=== PATIENT | male | born 1955 | race Caucasian/White ===

== ENCOUNTER → 2016-09-17 06:34 | Day surgery (SDC) | payer OTHER ==
--- NOTE | 2016-09-09 10:23 | HP ---
PREOPERATIVE HISTORY AND PHYSICAL: DATE OF SURGERY: 09/17/16 DATE OF OFFICE VISIT: 09/09/16 ATTENDING SURGEON: Dr. Donavan Vitale. PROCEDURE: Left shoulder arthroscopic rotator cuff repair verus open rotator cuff repair, subpectoral biceps tenodesis. CHIEF COMPLAINT: Left shoulder pain. HISTORY OF PRESENT ILLNESS: Mr. Miller is a 61-year-old male who presents to the clinic for ongoing left shoulder pain due to rotator cuff tear and biceps tendonitis. The patient has failed conservative measures and has therefore agreed to undergo a left shoulder arthroscopic rotator cuff repair versus open rotator cuff repair and subpectoral biceps tenodesis by Dr. Vitale on 09/17/16. PAST MEDICAL HISTORY: 1. High cholesterol. 2. High blood pressure. 3. Depression. 4. BPH. 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 The patient denies prior issues with anesthesia. MEDICATIONS: 1. Amlodipine besylate 10 mg one by mouth daily. 2. Citalopram hydrobromide 20 mg one by mouth daily. 3. Atorvastatin calcium 10 mg one by mouth daily. 4. Lisinopril 40 mg one by mouth daily. 5. Tramadol 50 mg one to two tabs by mouth every 8 hours as needed for pain. ALLERGIES: No known drug allergies. FAMILY HISTORY: Mom with diabetes. Dad with peptic ulcer disease. Sister with colon cancer. Brother with hemophilia. SOCIAL HISTORY: He lives with his spouse. 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 He denies tobacco use. He reports alcohol use, about two beverages a day. He exercises daily. REVIEW OF SYSTEMS: A 14-point review of systems was reviewed with the patient and positive for a head cold, hypertension, high cholesterol, BPH, weak stream, and frequent kidney stones. Otherwise, 14-point review of systems was negative. The patient denies history of DVT or PE. PHYSICAL EXAMINATION GENERAL: A well-developed, well-nourished, 61-year-old male in no acute distress. VITAL SIGNS: Height 70, weight 250, pulse 75, blood pressure 153/75, and respiratory rate 17. HEENT: Normocephalic and atraumatic. PERRLA. Throat clear. NECK: Supple. LUNGS: Lungs are clear to auscultation bilaterally. No wheezing, rhonchi, or rales. HEART: Cardiac; regular rate and rhythm. S1 and S2. No murmurs, gallops, or rubs. No edema. ABDOMEN: Positive bowel sounds, soft, and nontender. NEUROLOGIC: Alert and oriented x3; Cranial nerves are grossly intact. Sensation intact to light touch. MUSCULOSKELETAL: Left shoulder forward flexion to 160, abduction to 160, external rotation 75, internal rotation to T10. +4/5 belly press and bear hug, +4/5 strength to supraspinatus testing, +5/5 strength to the infraspinatus testing. Positive Neer, Campbell-Blayne, Providence and Speed's. Tenderness to palpation over the bicipital groove. +2 radial pulses. Sensation intact to light touch distally. DIAGNOSTIC STUDIES: MRI reveals tendinopathy and a small partial thickness tear of the supraspinatus tendon and undersurface tearing of the subscapularis tendon. IMPRESSION: Rotator cuff tear and biceps tendonitis of the left shoulder. PLAN/RECOMMENDATIONS: The patient is scheduled to undergo a left shoulder arthroscopic rotator cuff repair versus open rotator cuff repair and subpectoral biceps tenodesis with Dr. Vitale on 09/17/16. He will return to the office 10 to 14 days postop for followup and suture removal. A prescription for Percocet was E-prescribed to the patient's pharmacy for postoperative pain management. He was instructed to get Colace from the pharmacy for opioid-induced constipation. The patient will see his primary care physician, Dr. Thayer, prior to surgery, and will have Dr. Thayer send a note to the office. EDEL ALVARES [id number]/[facility] #: [id number] MTDRxoy
[~2016-09-17 06:34] MED LIST: Buffered Lidocaine 1% SYR 3ML* 3 ML/SYR SYRINGE INTRADERM ONE; Bupivacaine 0.25% SDV* 30 ML ONE; Bupivacaine 0.5% W/EPI SDV* 30 ML VIAL ONE; Dexamethasone IV* 4 MG/ML 1 ML (4 MG) IV SLOW PU ONE; Dexamethasone IV* 4 MG/ML 1 ML (4 MG) ONE; DiMENhydriNATE IV* 50 MG/ML VIAL IV PUSH PRN; Famotidine IV* 10 MG/ML 2 ML (20 mg) IV ONE; Famotidine IV* 10 MG/ML 2 ML (20 mg) ONE; Levalbuterol HFA INHALER* 1 PUFF MDI ONE; Lidocaine 2% PF * 5 ML VIAL ONE; Midazolam* 1 MG/ML 2 ML VIAL (2 MG) ONE; Ondansetron INJ* 2 MG/ML VIAL IV PRN; Ondansetron INJ* 2 MG/ML VIAL ONE; PROCHLORPERAZINE INJ 5 MG/ML 2 ML VIAL IV PRN; Propofol* 10 MG/ML 20 ML BTL IV PUSH ONE; Scopolamine 1.5 mg* PATCH TRANSDERM PRN; Scopolamine PATCH Remove* 1 NOTE MISC PATCH OFF ONE; ceFAZolin 2 GM PREMIX (*) 2 GM/50 ML BAG IVPB ONE; fentaNYL* 50 MCG/ML 2 ML VIAL (100 MCG VIAL) IV PRN; fentaNYL* 50 MCG/ML 2 ML VIAL (100 MCG VIAL) ONE
[2016-09-17 12:23] VITALS: BP 140/90
--- NOTE | 2016-09-18 03:07 | OP ---
DATE OF OPERATION: 09/17/16 [facility] DATE OF : 51 SURGEON: Donavan Vitale MD MARKETING PROJECT SPECIALIST: EDEL Blank. An museum assistant was needed for the entirety of the case to help with positioning, retraction, placement of anchors, and closure. ANESTHESIOLOGIST: David Dodson MD ANESTHESIA: General with interscalene block. PRE-OP DIAGNOSIS: Left shoulder rotator cuff tear, bicipital tendinitis. POST-OP DIAGNOSIS: Left shoulder rotator cuff tear, bicipital tendinitis. OPERATIVE PROCEDURE: Left shoulder arthroscopy with: 1. Extensive glenohumeral debridement including chondroplasty of the glenoid. 2. Arthroscopic rotator cuff repair of the subscapularis. 3. Arthroscopic double row rotator cuff repair of the supraspinatus tendon. 4. Subacromial decompression. 5. Subpectoral biceps tenodesis. IMPLANTS USED: Two MULTIFIX, one HEALICOIL, and one Q-Fix anchors. COMPLICATIONS: None. ESTIMATED BLOOD LOSS: Minimal. INDICATIONS: Yash Miller is a 61-year-old male who had shoulder pain for a significant amount of time. He failed conservative management. He has had injections as well as physical therapy. He was diagnosed with a high-grade partial- thickness tear of the supraspinatus as well as subscapularis as well as bicipital tendonitis. Risks and benefits of the surgery were discussed at length included but are not limited to bleeding, infection, damage to nerves, vessels, surrounding structures, wound nonhealing, persistent pain, need for further surgery, failure to repair, need further surgery, scarring, persistent pain, stiffness, loss of motion, risks of anesthesia, and risks of DVT. He has elected to proceed with the surgery. DESCRIPTION OF PROCEDURE: The patient was greeted in the preoperative area by the attending surgeon. Correct extremity was marked and consent was confirmed. The patient then underwent interscalene nerve by the anesthesia team in the preanesthesia area after which, he was brought to the operating room, where he was placed in supine position on the operating table. He then underwent general anesthesia with LMA intubation. After which, he was placed in the right lateral decubitus position. An axillary roll was placed. All bony prominences were padded and he was supported with a pegboard and the left arm was suspended from the traction frame with 10 pounds of traction. The shoulder was prepped and draped in the usual sterile fashion, beginning with chlorhexidine soap scrub and alcohol wipe and a final prep with ChloraPrep. After appropriate surgical pause indicating site, side, procedure, and administration of antibiotics; the posterolateral portal was made sharply with the 11-blade. The scope was introduced into the joint. The joint was examined. There were grade 0 to 1 changes of the vast majority of the humerus except for one area in the center which was grade 2 changes without stable flaps. The inferior aspect of the glenoid had grade 1 to 2 changes with unstable fraying. The anterior, posterior, inferior, and superior labrum had unstable fraying. The anterior portal was then made in an outside-in fashion. The superior labrum was damaged and torn and the biceps, which was stable, was starting to tear into the subscapularis. There was high-grade partial-thickness tearing of the undersurface of the subscap as well as the supraspinatus tendon. The biceps had abundant hyperemia and this was then tenotomized. The shaver was used to debride the unstable flaps of the cartilage of the humeral head and the glenoid. The anteroposterior and superior labrum was also debrided back. The subscap was identified and had high-grade partial-thickness tearing at least of proximal 25% of the footprint. This was easily restored by placing retraction on the cuff and trying to restore this with the grasper and the decision was made to repair this arthroscopically. Once the debridement was completed, attention was directed to arthroscopic subscap repair. The large 8-mm cannula was placed anteriorly. The lesser tuberosity was prepared with the shaver. The electrocautery device as well as the bur to decorticate the edges. The Dodson and Nephew tape was then passed in a horizontal mattress configuration through the subscapularis and then passed to the MULTIFIX anchor, which was then seated with excellent purchase. This helped to restore the subscapularis to the appropriate attention as well as complete the repair. Final images were obtained and the shoulder was taken to gentle internal and external rotation and was stable. The under-surface of the supraspinatus tendon had unstable fraying with high-grade partial-thickness tearing. All fluids and debris was removed from the joint. The scope was then repositioned in the subacromial space and this was examined. There was abundant hyperemic bursa that was present. A lateral portal was then made in an outside-in fashion. The shaver was then brought into the lateral portal and then bursectomy was done just to expose the undersurface of the acromion, which was then skeletonized using the electrocautery device. This demonstrated irregular spurs. Therefore, the bur was brought in and then after the CA ligament was peeled back, a small acromioplasty was done. At this point , the rotator cuff was examined. There was high-grade bursal sided tearing and then the cuff was probed and found to be quite thin. The incision was made to take down and repair the supraspinatus. The 11 blade was used to complete the tear of the anterior aspect of the supraspinatus tendon. The shaver was used to debride back the fibers of rotator cuff as well as the footprint. The footprint was further prepared with the electrocautery device and the rasp. Once good bony bleeding edge was identified, one 4.75 HEALICOIL anchor was placed in the medial row. The sutures were passed in a horizontal mattress configuration and tied down with arthroscopic knot tie. This was then further passed through MULTIFIX anchor into the lateral row anchor, which is called MULTIFIX. This allowed for reapproximation double row repair to compress the supraspinatus tendon. Final images were obtained and all fluid and debris was removed from the joint. The bed was slightly airplaned to the left side. The anterior aspect of the humerus was prepped again with ChloraPrep and a 15 blade was then used to make an incision in line with the biceps encompassing the inferior two-thirds of the pectoral tendon. The dissection was done with Metzenbaum scissors until the clavipectoral fascia was identified. The remainder of the dissection was done bluntly. The Rylan was used to elevate the deltoid superiorly and the bicipital groove was then palpated and a small wellington in the groove was then made using the Bovie and the biceps was removed and found to be very hyperemic and inflamed. The bicipital groove was then prepped in the usual fashion with electrocautery device, the small ball rasp, and the osteotome. The Q-FIX anchor drill guide was then placed and drilled unicortically. The Q-FIX was deployed with excellent purchase. The sutures were then passed to the tendon approximately 1 cm proximal to the musculotendinous junction in a Joe-Tashi type configuration. The excess biceps stump was then debrided and the biceps was then shuttled back into the wound and secured with the knots. This helped restore tension to the biceps. The wounds were copiously irrigated. The anterior wound was closed in layer with 2-0 Vicryl and 3-0 Monocryl. The 3-0 nylon was used to close the portal sites. A 20 cc of 0.25% Marcaine plain were injected in the anterior wound. Sterile dressings were applied, a Cryo/Cuff, and UltraSling. He was awoken from anesthesia and transferred to the PACU in stable condition. POSTOPERATIVE PLAN: He will be nonweightbearing. For 6 weeks, he will be in the sling for that time. He will be allowed to come out, 4 times a day, to work on elbow, hand, and wrist range of motion as well as pendulum exercises. He will be discharged on pain medications as well as antibiotics. DVT prophylaxis was considered due to no previous personal or family history. I will see the patient back in 10 to 14 days. CC: PCP, Michael Thayer MD* [id number]/[facility] #: [id number] KENYATTA
== END | disposition home or self-care (01) ==
LOC: OR 06:34
PROVIDERS: ATTEND Orthopaedic Surgery
DX: M75.102 Unspecified rotator cuff tear or rupture of left shoulder, not specified as traumatic (principal); M75.22 Bicipital tendinitis, left shoulder; I10 Essential (primary) hypertension
CPT/HCPCS: 36415; 86803; A9270-GY; C1713; C1776; J0690; J1100; J2250; J2405; J2704; J3010

== ENCOUNTER → 2016-11-19 11:25 | Day surgery (SDC) | payer OTHER ==
[~2016-11-19 11:25] MED LIST changes: -Buffered Lidocaine 1% SYR 3ML* 3 ML/SYR SYRINGE INTRADERM ONE; +Buffered Lidocaine 1% SYRIN* 3 ML/SYR SYRINGE INTRADERM ONE; -Bupivacaine 0.5% W/EPI SDV* 30 ML VIAL ONE; -Dexamethasone IV* 4 MG/ML 1 ML (4 MG) IV SLOW PU ONE; -Dexamethasone IV* 4 MG/ML 1 ML (4 MG) ONE; -Famotidine IV* 10 MG/ML 2 ML (20 mg) IV ONE; -Famotidine IV* 10 MG/ML 2 ML (20 mg) ONE; -Levalbuterol HFA INHALER* 1 PUFF MDI ONE; -Lidocaine 2% PF * 5 ML VIAL ONE; +Lidocaine 2% PF* 5 ML VIAL ONE; -Ondansetron INJ* 2 MG/ML VIAL IV PRN; -Ondansetron INJ* 2 MG/ML VIAL ONE; -PROCHLORPERAZINE INJ 5 MG/ML 2 ML VIAL IV PRN; +ROPIVACAINE 5 MG/ML 30 ML BTL (0.5%) ONE; -Scopolamine 1.5 mg* PATCH TRANSDERM PRN; -Scopolamine PATCH Remove* 1 NOTE MISC PATCH OFF ONE; +Sodium Citrate/Citric Acid* 15 ML UDC ONE; -ceFAZolin 2 GM PREMIX (*) 2 GM/50 ML BAG IVPB ONE; +ceFAZolin 2 GM PREMIX(*) 2 GM/50 ML BAG IVPB ONE; +oxyCODONE/Acetamin 5/325 MG* TAB ONE
[2016-11-19] MEDS: Sodium Citrate/Citric Acid* 15 ML UDC PO ONE ×2 (11:56→12:17)
[2016-11-19 15:47] VITALS: BP 124/104
--- NOTE | 2016-11-20 13:18 | OP ---
DATE OF OPERATION: 11/19/16 [facility] DATE OF : 51 ATTENDING SURGEON: Donavan Vitale MD PAINT FACTORY WORKER: Margie Neville PA-C. An assistant clinical nurse manager was needed for the entirety of the case to help with positioning, retraction, and was utilizing throughout all portions of the case. ANESTHESIOLOGIST: Dr. Comer. ANESTHESIA: General with interscalene block. PRE-OP DIAGNOSIS: Left shoulder retear of the rotator cuff. POST-OP DIAGNOSIS: Left shoulder retear of the rotator cuff. OPERATIVE PROCEDURE: 1. Left shoulder arthroscopic debridement with removal of foreign bodies x3. 2. Revision decompression. 3. Revision rotator cuff repair. A 22 modifier due to this was a revision case and it was complex, and there was abundant healing scar tissue that needed to be worked through. IMPLANTS USED: One HEALICOIL and one MULTIFIX. INDICATIONS: Yash Miller is a 61-year-old male who underwent left shoulder rotator cuff repair which was essentially a massive rotator cuff repair involving supra- and infraspinatus tendons as well as the subscapularis and subpectoral biceps tenodesis on September 17. He was doing well on his postoperative period but fell sustaining reinjury to the cuff. He had another tear that was demonstrated by MRI and therefore the risks and benefits of surgery versus nonoperative procedure were discussed at length and the patient elected to proceed with surgery. Risks included but not limited to bleeding; infection; damage to nerves, vessels, surrounding structures; the wound not healing; persistent pain; need for further surgery; risk of anesthesia failure; risk of DVT; failure; stiffness; scarring. He has elected to proceed. COMPLICATIONS: None. DESCRIPTION OF PROCEDURE: The patient was greeted in the preoperative area by the attending surgeon. Correct extremity was marked, consent was confirmed. The patient was then brought back to the operative suite where he was placed in supine position on the operating table. He then underwent an interscalene nerve block by the anesthesiologist, after which the patient underwent general anesthesia with endotracheal intubation, which he tolerated without difficulty. The patient was then placed in the right lateral decubitus position, all bony prominences were padded, supported with a peg board. A small axillary roll was placed. The left arm was draped from the traction frame with 10 pounds of traction unsterile. The left shoulder was prepped and draped in the usual sterile fashion beginning with chlorhexidine soap and alcohol scrub and final prep with ChloraPrep. After appropriate surgical pause indicating side, site, procedure, and administration of antibiotics, the standard postero-lateral portal was made sharply with an 11 blade. The scope was introduced into the joint and the joint was examined. There was abundant synovitis in the glenohumeral joint space. There were no significant changes to the humeral or glenoid wear compared to the previous surgery. The subscap had evidence of the suture being torn; however the tendon itself was mostly intact. The shaver and electrocautery devices were used to gently debride around the scar tissue and the subscap was identified and found to be mostly intact, therefore it was left alone. The undersurface of the supra-spinatus was identified and it was found to be fully torn anteriorly. After the debridement superiorly and about the subscap was complete, attention was directed to subacromial space. The scope was repositioned at the subacromial space. There was abundant bursa evident. There was evidence of healing and partially healed rotator cuff. The bursa and dense tissue were very thick and scarred requiring more time than usual for debridement. The cuff was then probed and anterior portion appeared to have tearing, had bubbled over, there were sutures that were pulled through the tendon tissue. At this point, the space was very tight. After the lateral portal was made in an outside- in fashion, the shaver was used to debride the bursa. The undersurface of the acromion had scar tissue that was debrided back using the electrocautery device as well as the shaver. A gentle decortication was done again to allow for more room to pass the sutures. The torn portion of the tendon anteriorly, the sutures were carefully removed. This did take some time because the knots were still intact. Once these were removed in its entirety, the footprint was prepared using electrocautery device, the rasp as well as the shaver. The rotator cuff was again prepared with a shaver as well. This provisionally was reduced to the footprint and found to be appropriately reduced. After this, one HEALICOIL anchor was placed in the medial row. Care was taken to try to not to place this in the previous rotator cuff anchor sites. This was placed with a good purchase. The bone quality however was not good. The sutures were then passed in horizontal mattress configuration throughout the tendon and then tied down with arthroscopic knot tying. Decision was made to try to do a lateral row and that was done so with MULTIFIX with care to try to find a portion of the bone that was not already previously penetrated by previous lateral row. Once this was done, this allowed for appropriate buddhism of the footprint. The final images were obtained. All loose debris was removed from the joint and loose debris was removed from the subacromial space. The portals were closed with 3-0 nylon. Sterile dressings were applied. Cryo/ Cuff as well as his previous UltraSling were applied. He was awoken from anesthesia and transferred to the PACU in stable condition. POSTOPERATIVE PLAN: He will be nonweightbearing in sling for another 6 weeks. He will be allowed to work on elbow, wrist and hand range of motion as well as pendulum exercises. He will be discharged on pain medications as well as antibiotics. DVT prophylaxis is considered, but deferred due to no previous personal or family history. I will see the patient back in 10 to 14 days. CC: Primary Care Physician, [place] [id number]/[facility] #: [id number] KENYATTA
== END | disposition home or self-care (01) ==
LOC: OR 11:25
PROVIDERS: ATTEND Orthopaedic Surgery
DX: S46.012A Strain of muscle(s) and tendon(s) of the rotator cuff of left shoulder, initial encounter (principal); W19.XXXA Unspecified fall, initial encounter; Y92.9 Unspecified place or not applicable; I10 Essential (primary) hypertension
CPT/HCPCS: A9270-GY; C1713; J0690; J2250; J2704; J2795; J3010

== ENCOUNTER 2018-09-21 07:51 | Day surgery (SDC) | payer OTHER ==
--- NOTE | 2018-09-13 16:20 | HP ---
PREOPERATIVE HISTORY AND PHYSICAL: DATE OF SURGERY/ADMISSION: 09/21/18 [facility] ATTENDING SURGEON: Martine Eisenberg MD.* (DICTATED BY EDEL GARCÍA) PROCEDURE: Left wrist carpal tunnel release. DATE OF OFFICE VISIT/ENCOUNTER: 09/13/18 CHIEF COMPLAINT: Cramping, weakness, tingling in bilateral hands, left worse than right. HISTORY OF PRESENT ILLNESS: This is a 63-year-old male who has complaints of bilateral hand cramping, left worse than right, that has been ongoing since the summer of 2017. He experienced some tingling in the hands in the median nerve distribution but more so is bothered by cramping and loss of strength in his hands. He recently had a nerve conduction EMG study which showed moderate carpal tunnel syndrome on the right and mild carpal tunnel syndrome on the left ; however, clinically he is much more symptomatic on the left. He has opted for a left wrist carpal tunnel release. PAST MEDICAL HISTORY: 1. Hypertension. 2. Hypercholesterolemia. 3. Depression. PAST SURGICAL HISTORY: 1. Left shoulder x2. 2. Lipoid tumor removed from right shoulder. 3. Hernia repair. 4. Dental work. The patient denies any anesthesia problems in the past. CURRENT MEDICATIONS: 1. Amlodipine besylate 10 mg daily. 2. Atorvastatin calcium 10 mg daily. 3. Citalopram hydrobromide 40 mg daily. 4. Lisinopril 40 mg daily. 5. Tamsulosin. ALLERGIES: No known drug allergies. FAMILY MEDICAL HISTORY: Noncontributory. 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 He has no history of smoking. He denies recreational drug usage. He drinks alcohol on occasion. REVIEW OF SYSTEMS: Negative for general, cephalic, cardiovascular, respiratory , GI, , other musculoskeletal, integumentary, endocrine, neurologic, and hematologic symptoms. Infectious Disease: Negative for MRSA, hepatitis C, HIV. PHYSICAL EXAMINATION GENERAL: Well-developed, well-nourished 63-year-old male in no acute distress. VITAL SIGNS: Height 5 feet 10 inches, weight 200 pounds, blood pressure 112/68 , pulse rate 60. HEENT: Normocephalic, atraumatic. Pupils are equal, round, and reactive to light and accommodation. Extraocular movements are intact. NECK: Supple. No palpable lymph nodes. Throat is clear. PULMONARY: Lungs are clear to auscultation bilaterally. No wheezes, rales, or rhonchi. CARDIOVASCULAR: Regular rate and rhythm. S1, S2. No murmurs, rubs, or gallops. No edema. ABDOMEN: Positive bowel sounds, soft, nontender. MUSCULOSKELETAL: On exam of his bilateral hands, he has no visible thenar wasting, but he does have weakness with thumb abduction bilaterally. He has positive median nerve compression test on the left. Negative Tinel's bilaterally at the wrist and at the elbows. Sensation is intact throughout each hand. NEUROLOGIC: Alert and oriented x3. Cranial nerves II through XII are intact. IMAGING: EMG nerve conduction study shows moderate carpal tunnel syndrome on the right, mild carpal tunnel syndrome on the left. IMPRESSION: Bilateral carpal tunnel syndrome. PLAN: The patient is scheduled to undergo a left wrist carpal tunnel release with Dr. Eisenberg on 09/21/18. He will return to the office 10 days postop for followup and suture removal. A prescription for Tylenol No. 3 was e-scribed to the patient's pharmacy for postoperative pain management. EDEL GARCÍA [id number]/[facility] #: [id number] KENYATTA
[~2018-09-21 07:51] MED LIST changes: +Buffered Lidocaine 1% SYRIN* 1 ML/SYRINGE INTRADERM ONE; -Buffered Lidocaine 1% SYRIN* 3 ML/SYR SYRINGE INTRADERM ONE; -Bupivacaine 0.25% SDV* 30 ML ONE; +Dexamethasone TAB* 4 MG PO ONE; +Famotidine IV* 10 MG/ML 2 ML (20 mg) IV ONE; +Lactated Ringers 1000 ML Bag* 1,000 ML IV SCH; -Lidocaine 2% PF* 5 ML VIAL ONE; -Midazolam* 1 MG/ML 2 ML VIAL (2 MG) ONE; +Naloxone* 0.4 MG/ML 1 ML VIAL IV PRN; +Ondansetron TAB* 4 MG PO ONE; +PROCHLORPERAZINE INJ 5 MG/ML 2 ML VIAL IV PRN; -Propofol* 10 MG/ML 20 ML BTL IV PUSH ONE; -ROPIVACAINE 5 MG/ML 30 ML BTL (0.5%) ONE; -Sodium Citrate/Citric Acid* 15 ML UDC ONE; -ceFAZolin 2 GM PREMIX(*) 2 GM/50 ML BAG IVPB ONE; -fentaNYL* 50 MCG/ML 2 ML VIAL (100 MCG VIAL) ONE; -oxyCODONE/Acetamin 5/325 MG* TAB ONE; +oxyCODONE/Acetamin 5/325 MG* TAB PO PRN
[2018-09-21] MEDS ORDERED: Ondansetron ODT TAB* 4 MG ONE (08:58)
[2018-09-21] MEDS ORDERED: Famotidine IV* 10 MG/ML 2 ML (20 mg) ONE (08:58)
[2018-09-21] MEDS ORDERED: Dexamethasone TAB* 4 MG ONE (08:58)
[2018-09-21] MEDS ORDERED: fentaNYL* 50 MCG/ML 2 ML VIAL (100 MCG VIAL) ONE (09:20)
[2018-09-21] MEDS ORDERED: Midazolam* 1 MG/ML 5 ML VIAL (5 MG) ONE (09:20)
[2018-09-21] MEDS ORDERED: Ketorolac INJ* 30 MG/ML 1 ML VIAL ONE (09:21)
[2018-09-21] MEDS ORDERED: Propofol* 10 MG/ML 20 ML BTL ONE (09:21)
[2018-09-21] MEDS ORDERED: Lidocaine 1% INJ* 10 MG/ML 30 ML SDV ONE (09:32)
[2018-09-21 10:44] VITALS: BP 109/72
--- NOTE | 2018-09-21 14:13 | OP ---
DATE OF OPERATION: 09/21/18 [facility] DATE OF : 51 SURGEON: Dr. Eisenberg. BOTTOMING ROOM INSPECTOR: EDEL Hernandez. ANESTHESIA: Local MAC. PRE-OP DIAGNOSIS: Left carpal tunnel syndrome. POST-OP DIAGNOSIS: Left carpal tunnel syndrome. OPERATIVE PROCEDURE: Left carpal tunnel release. ESTIMATED BLOOD LOSS: Zero. TOURNIQUET TIME: Approximately 8 minutes. INDICATIONS FOR PROCEDURE: Yash is a 63-year-old man with numbness and tingling in the median nerve distribution of his left hand. He presents for left carpal tunnel release. DESCRIPTION OF PROCEDURE: The patient was brought to the operating room, was given a sedation anesthetic, and a local infiltration of 10 cc of 1% plain lidocaine in the palm of his left hand. Skin of his left hand and forearm was prepped and draped in the usual sterile fashion. The hand and forearm were exsanguinated and the tourniquet elevated to 250 mmHg. A longitudinal incision was made in the palm in line with the ring finger. We dissected through the subcutaneous tissue down to the transverse carpal ligament. The ligament was divided sharply with a knife and then more proximally with the scissors. The nerve was dissected free from the surrounding tissue and there was an area of significant compression at the midportion of the ligament. The wound was irrigated and the skin edges reapproximated with 4-0 nylon suture. The wound was dressed with Xeroform, 4x4, Webril, and an Kemal wrap. Patient tolerated the procedure well and was brought to the recovery room in good condition. [id number]/[facility] #: [id number] [facility]
== END 2018-09-21 11:15 | disposition home or self-care (01) ==
LOC: OREAST 07:51
PROVIDERS: ATTEND Orthopaedic Surgery
DX: G56.02 Carpal tunnel syndrome, left upper limb (principal); I10 Essential (primary) hypertension; E78.5 Hyperlipidemia, unspecified
CPT/HCPCS: A9270-GY; J1885; J2250; J2704; J3010; J8540

== ENCOUNTER 2019-04-27 07:19 | Day surgery (SDC) | payer OTHER ==
[~2019-04-27 07:19] MED LIST changes: -Dexamethasone TAB* 4 MG PO ONE; -DiMENhydriNATE IV* 50 MG/ML VIAL IV PUSH PRN; -Famotidine IV* 10 MG/ML 2 ML (20 mg) IV ONE; -Lactated Ringers 1000 ML Bag* 1,000 ML IV SCH; -Naloxone* 0.4 MG/ML 1 ML VIAL IV PRN; -Ondansetron TAB* 4 MG PO ONE; -PROCHLORPERAZINE INJ 5 MG/ML 2 ML VIAL IV PRN; -fentaNYL* 50 MCG/ML 2 ML VIAL (100 MCG VIAL) IV PRN; -oxyCODONE/Acetamin 5/325 MG* TAB PO PRN
[2019-04-27] MEDS ORDERED: Midazolam* 1 MG/ML 2 ML VIAL (2 MG) ONE ×2 (09:27→09:37)
[2019-04-27 11:02] VITALS: BP 121/81
--- NOTE | 2019-04-27 11:27 | OP ---
OPERATIVE NOTE: DATE OF OPERATION: 04/27/19 DATE OF : 51 SURGEON: Truong Christine M.D. PREOPERATIVE DIAGNOSIS: Cataract, right eye. POSTOPERATIVE DIAGNOSIS: Cataract, right eye. OPERATIVE PROCEDURE: Extracapsular cataract extraction with IOL implant, right eye. PROCEDURE: The patient was brought to the operating room after being given 1/2% Alcaine with epineph rine drops in the preoperative area. The eye was prepped and draped in the usual sterile fashion. S terile drape and eyelid speculum were placed. Again, topical 1/2% Alcaine with epinephrine was given . A paracentesis incision was made at the 9 o'clock position with the No.75 blade. Clear cornea inc ision 2.2 x 2.2-mm was created at the 12 o'clock position starting at the anterior limbus using the 2 .2-mm keratome. The anterior chamber was irrigated with 0.4 mL of 1% non-preservative intracameral l idocaine and filled with DisCoVisc. A capsulorrhexis was completed using the cystotome and the Utrat a forceps. Hydrodissection was performed with balanced salt solution. The lens nucleus was removed w ith the Phacoemulsification handpiece without incident. Cortex was removed with the irrigation-aspir ation handpiece. The capsular bag was re-inflated using DisCoVisc and an SN60WF 18.5 implant was ins erted with the shooter. The pupil was very small, so a Malyugin ring was used to dilate the pupil pr ior to capsulorrhexis, removed after insertion of the lens. The irrigation-aspiration handpiece was used to remove all residual DisCoVisc. The eye was refilled with balanced salt solution and the woun d checked and found to be watertight. Topical Maxitrol drops were given. Indication for complex cataract surgery: Pupil abnormalities requiring pupil dilation device. ORA w as used to confirm our measurements. [id number]/[facility] #: [id number]
[2019-04-27] MEDS ORDERED: Povidone Iodine 5% OPTH* 30 ML BTL ONE (12:25)
[2019-04-27] MEDS ORDERED: Ketorolac 0.5% OPHTH (NF) 0.5 % 5 ML BTL ONE (12:25)
[2019-04-27] MEDS ORDERED: Lidocaine 2% w/ EPI 1:200,000* 20 ML SDV VIAL ONE (12:25)
[2019-04-27] MEDS ORDERED: Lidocaine 1% MPF ** 5 ML VIAL ONE (12:25)
[2019-04-27] MEDS ORDERED: Proparacaine 0.5% OPHTH.SOL* 15 ML BTL ONE (12:25)
[2019-04-27] MEDS ORDERED: Neomycin/Polymy/Dex OPTH.SUSP* MAXITROL 0.1% 5 ML ONE (12:25)
[2019-04-27] MEDS ORDERED: Phenylephrine OPHTH SOL 2.5%* 2 ML ONE (12:25)
[2019-04-27] MEDS ORDERED: Cyclopentolate 1% OPTH.SOL* 2 ML BTL ONE (12:25)
[2019-04-27] MEDS ORDERED: acetaZOLAMIDE TAB* 250 MG ONE (12:25)
== END 2019-04-27 10:19 | disposition home or self-care (01) ==
LOC: OREAST 07:19
PROVIDERS: ATTEND Specialist
DX: H25.811 Combined forms of age-related cataract, right eye (principal); H21.561 Pupillary abnormality, right eye; I10 Essential (primary) hypertension; E78.00 Pure hypercholesterolemia, unspecified; L71.9 Rosacea, unspecified; E78.5 Hyperlipidemia, unspecified; F41.8 Other specified anxiety disorders
CPT/HCPCS: A9270-GY; J2250; V2632

== ENCOUNTER 2019-05-04 07:10 | Day surgery (SDC) | payer OTHER ==
[~2019-05-04 07:10] MED LIST changes: +Acetaminophen TAB* 325 MG PO PRN
[2019-05-04] MEDS ORDERED: Midazolam* 1 MG/ML 5 ML VIAL (5 MG) ONE (09:11)
[2019-05-04 10:31] VITALS: BP 110/70
[2019-05-04] MEDS ORDERED: Povidone Iodine 5% OPTH* 30 ML BTL ONE (10:39)
[2019-05-04] MEDS ORDERED: Lidocaine 2% w/ EPI 1:200,000* 20 ML SDV VIAL ONE (10:39)
[2019-05-04] MEDS ORDERED: Cyclopentolate 1% OPTH.SOL* 2 ML BTL ONE (10:39)
[2019-05-04] MEDS ORDERED: Lidocaine 1% MPF ** 5 ML VIAL ONE (10:39)
[2019-05-04] MEDS ORDERED: Ketorolac 0.5% OPHTH (NF) 0.5 % 5 ML BTL ONE (10:39)
[2019-05-04] MEDS ORDERED: Neomycin/Polymy/Dex OPTH.SUSP* MAXITROL 0.1% 5 ML ONE (10:39)
[2019-05-04] MEDS ORDERED: Proparacaine 0.5% OPHTH.SOL* 15 ML BTL ONE (10:39)
[2019-05-04] MEDS ORDERED: acetaZOLAMIDE TAB* 250 MG ONE (10:39)
[2019-05-04] MEDS ORDERED: Phenylephrine OPHTH SOL 2.5%* 2 ML ONE (10:39)
--- NOTE | 2019-05-04 11:32 | OP ---
DATE OF OPERATION: 05/04/2019. DATE OF : 1955. SURGEON: Truong Christine M.D. PREOPERATIVE DIAGNOSIS: Cataract left eye. POSTOPERATIVE DIAGNOSIS: Cataract left eye. OPERATIVE PROCEDURE: Extracapsular cataract extraction with intraocular lens implant left eye. PROCEDURE: The patient was brought to the operating room after being given 1/2% Alcaine with epineph rine drops in the preoperative area. The eye was prepped and draped in the usual sterile fashion. S terile drape and eyelid speculum were placed. Again, topical 1/2% Alcaine with epinephrine was given . A paracentesis incision was made at the 3 o'clock position with the No.75 blade. Clear cornea inc ision 2.2 x 2.2-mm was created at the 6 o'clock position starting at the anterior limbus using the 2. 2-mm keratome. The anterior chamber was irrigated with 0.4 mL of 1% non-preservative intracameral li docaine and filled with DisCoVisc. A capsulorrhexis was completed using the cystotome and the Utrata forceps. Hydrodissection was performed with balanced salt solution. The lens nucleus was removed wi th the Phacoemulsification handpiece without incident. Cortex was removed with the irrigation-aspira tion handpiece. The capsular bag was re-inflated using DisCoVisc and an [id number] 18 implant was insert ed with the shooter. A Malyugin ring was used to hold the pupil open since it was very small and rem keaton after insertion of the lens. All measurements were confirmed with ORA. The irrigation- aspirat ion handpiece was used to remove all residual DisCoVisc. The eye was refilled with balanced salt lisandro ution and the wound checked and found to be watertight. Topical Maxitrol drops were given. [id number]/[facility] #: [id number]
== END 2019-05-04 10:24 | disposition home or self-care (01) ==
LOC: OREAST 07:10
PROVIDERS: ATTEND Specialist
DX: H25.812 Combined forms of age-related cataract, left eye (principal); I10 Essential (primary) hypertension; E78.00 Pure hypercholesterolemia, unspecified; L71.9 Rosacea, unspecified; E78.5 Hyperlipidemia, unspecified
CPT/HCPCS: A9270-GY; J2250; V2632